=== PATIENT | male | born 1970 | race African-American/Black ===

== ENCOUNTER 2017-01-30 16:32 | Inpatient (IN) | payer MEDICAID ==
[~2017-01-30] VITALS: Ht 172.7 cm; Wt 80.0 kg
[~2017-01-30 16:32] MED LIST: DIVA500T4 PO; ENAL10TA PO; GABA300C10 PO; HYDR25TA11 PO; IBUP800T PO; NALT50TA PO; OMEP-110 PO; QUET200T4 PO; SUCR1TAB26 PO; TRAM-28 PO; VALP250C59 PO
[2017-01-30] MEDS ORDERED: LORazepam 1MG TABLET ONE (17:26)
[2017-01-30] MEDS ORDERED: LORazepam 1MG TABLET PO ONE (17:30)
[2017-01-30 19:59] LABS: BLOOD UREA NITROGEN 7 mg/dL (7-18)
[2017-01-30 20:09] LABS: ACETAMINOPHEN < 2 mcg/mL (10-30)
[2017-01-30] MEDS ORDERED: POTASSIUM CHLORIDE 40 MEQ in SODIUM CHLORIDE 0.9% 1,000 ML IV ONE (20:31)
[2017-01-30] MEDS ORDERED: LORazepam 2 MG/ML, 1ML ONE (20:57)
[2017-01-30] MEDS ORDERED: SODIUM CHLORIDE FLUSH 10ML SYR IVF PRN ×2 (21:00→21:30)
[2017-01-30] MEDS ORDERED: LORazepam 2 MG/ML, 1ML IVPush ONE (21:00)
[2017-01-30] MEDS ORDERED: POTASSIUM CHLORIDE 20 MEQ in SODIUM CHLORIDE 0.9% 1,000 ML IV ONE (21:26)
[2017-01-30] MEDS ORDERED: NS + 40MEQ KCL 0 ML IV ONE (21:44)
[2017-01-30] MEDS ORDERED: POTASSIUM CHLORIDE 10 MEQ, MVI ADULT 10 ML, FOLIC ACID 1 MG, MAGNESIUM SULFATE 1 GM in ... IV SCH (22:37)
[2017-01-30] MEDS ORDERED: LORazepam 2 MG/ML, 1ML IV PRN ×3 (23:00)
[2017-01-30] MEDS ORDERED: ALUMINUM/MAG/SIMETHICONE 30 ML UDC PO PRN (23:00)
[2017-01-30] MEDS ORDERED: DIAZEPAM 5 MG/ML, 2ML IV PRN (23:00)
[2017-01-30] MEDS ORDERED: ONDANSETRON 2MG/ML, 2ML IV PRN (23:00)
[2017-01-30 23:29] LABS: ASPARTATE AMINO TRANSFERASE 270 U/L (15-37)
[2017-01-30 23:36] LABS: BLOOD UREA NITROGEN 7 mg/dL (7-18)
[2017-01-31] MEDS: LORazepam 2 MG/ML, 1ML IV PRN ×4 (01:40→20:31)
[2017-01-31 02:00] VITALS: BP 118/83
[2017-01-31 02:35] VITALS: BP 118/83
[2017-01-31] MEDS: POTASSIUM CHLORIDE 10 MEQ, MVI ADULT 10 ML, FOLIC ACID 1 MG, MAGNESIUM SULFATE 1 GM in ... IV SCH ×3 (03:11→17:18)
[2017-01-31 07:26] VITALS: BP 115/80
[2017-01-31] MEDS: POTASSIUM CHLORIDE 40 MEQ in SODIUM CHLORIDE 0.9% 500 ML IV ONE (08:00)
[2017-01-31] MEDS: NALTREXONE HCL 50 MG HOMEMEDPO SCH (08:26)
[2017-01-31] MEDS: OMEPRAZOLE 20 MG CAPSULE.DR PO SCH ×2 (08:26→20:32)
[2017-01-31] MEDS: DIVALPROEX 500 MG TAB.ER.24H PO SCH ×2 (08:27→20:31)
[2017-01-31] MEDS: ENALAPRIL 10 MG TABLET PO SCH (08:27)
[2017-01-31] MEDS: GABAPENTIN 300 MG CAPSULE PO SCH ×2 (08:27→20:32)
[2017-01-31] MEDS: ENOXAPARIN 40 MG/0.4 ML SQ SCH (10:00)
[2017-01-31 13:04] VITALS: BP 119/81
[2017-01-31 18:19] VITALS: BP 158/92
[2017-01-31 20:29] LABS: DAU SCREEN DISCLAIMER
[2017-02-01 00:32] VITALS: BP 131/85
[2017-02-01] MEDS: POTASSIUM CHLORIDE 10 MEQ, MVI ADULT 10 ML, FOLIC ACID 1 MG, MAGNESIUM SULFATE 1 GM in ... IV SCH (04:10)
[2017-02-01 06:13] LABS: ASPARTATE AMINO TRANSFERASE 115 U/L (15-37); BLOOD UREA NITROGEN 7 mg/dL (7-18)
[2017-02-01 08:20] VITALS: BP 145/85
[2017-02-01] MEDS: NALTREXONE HCL 50 MG HOMEMEDPO SCH (08:54)
[2017-02-01] MEDS: DIVALPROEX 500 MG TAB.ER.24H PO SCH (08:58)
[2017-02-01] MEDS: ENALAPRIL 10 MG TABLET PO SCH (08:59)
[2017-02-01] MEDS: GABAPENTIN 300 MG CAPSULE PO SCH (08:59)
[2017-02-01] MEDS: OMEPRAZOLE 20 MG CAPSULE.DR PO SCH (08:59)
[2017-02-01] MEDS: ENOXAPARIN 40 MG/0.4 ML SQ SCH (10:00)
== END 2017-02-01 12:07 | disposition home or self-care (01) | DRG 897 ==
LOC: ED 21:12 → EDIP 21:26 → 4WST 01-31 00:27
PROVIDERS: ADMIT Hospitalist; ATTEND Hospitalist
DX: F10.220 Alcohol dependence with intoxication, uncomplicated (principal); E87.0 Hyperosmolality and hypernatremia; R45.851 Suicidal ideations; F31.9 Bipolar disorder, unspecified; K21.9 Gastro-esophageal reflux disease without esophagitis; I10 Essential (primary) hypertension; G40.909 Epilepsy, unspecified, not intractable, without status epilepticus; F20.9 Schizophrenia, unspecified; R13.10 Dysphagia, unspecified; G47.00 Insomnia, unspecified; F41.9 Anxiety disorder, unspecified; Z59.0 Homelessness; E87.6 Hypokalemia; I11.9 Hypertensive heart disease without heart failure; Z78.1 Physical restraint status; Z91.14 Patient's other noncompliance with medication regimen; G31.2 Degeneration of nervous system due to alcohol
CPT/HCPCS: 36415; 80048; 80053; 80307; 80329; 82040; 83735; 85025; 93005; 96374; J2405; J3475; J3480; J7042; G0480; J2060; J7030

== ENCOUNTER 2017-02-07 03:24 | Emergency (ER) | payer MEDICAID ==
[~2017-02-07] VITALS: Ht 170.2 cm; Wt 78.0 kg
[2017-02-07] MEDS ORDERED: LORazepam 2 MG/ML, 1ML ONE (03:45)
[2017-02-07] MEDS ORDERED: SODIUM CHLORIDE 0.9% 1,000ML IVBOLUS ONE (04:00)
[2017-02-07] MEDS ORDERED: LORazepam 2 MG/ML, 1ML IVPush ONE (04:00)
[2017-02-07 04:06] LABS: DAU SCREEN DISCLAIMER
[2017-02-07 04:18] LABS: ASPARTATE AMINO TRANSFERASE 113 U/L (15-37); BLOOD UREA NITROGEN 8 mg/dL (7-18)
[2017-02-07] MEDS ORDERED: CHLORDIAZEPOXIDE 25 MG CAPSULE PO ONE (04:30)
[2017-02-07 06:03] VITALS: BP 151/83
== END 2017-02-07 06:09 | disposition home or self-care (01) ==
LOC: ED 03:57
DX: F10.239 Alcohol dependence with withdrawal, unspecified (principal); F10.229 Alcohol dependence with intoxication, unspecified; I10 Essential (primary) hypertension; F31.9 Bipolar disorder, unspecified; E87.6 Hypokalemia; E86.1 Hypovolemia
CPT/HCPCS: 36415; 80053; 80307; 83690; 85025; 96361; 96374; 99285; J2060; J7030

== ENCOUNTER 2017-02-13 13:52 | Emergency (ER) | payer MEDICAID ==
[~2017-02-13] VITALS: Ht 165.1 cm; Wt 78.0 kg
[2017-02-13 13:57] VITALS: BP 134/93
[2017-02-13] MEDS ORDERED: LORazepam 1MG TABLET ONE ×2 (14:19→14:33)
[2017-02-13] MEDS ORDERED: LORazepam 1MG TABLET PO ONE (14:30)
[2017-02-13] MEDS ORDERED: OXYcodone/APAP 5/325MG TABLET ONE (15:21)
[2017-02-13] MEDS ORDERED: OXYcodone/APAP 5/325MG TABLET PO ONE (15:30)
== END 2017-02-13 15:55 | disposition home or self-care (01) ==
LOC: ED 15:45
DX: S06.0X1A Concussion with loss of consciousness of 30 minutes or less, initial encounter (principal); S62.524A Nondisplaced fracture of distal phalanx of right thumb, initial encounter for closed fracture; S00.81XA Abrasion of other part of head, initial encounter; K92.1 Melena; I10 Essential (primary) hypertension; K21.9 Gastro-esophageal reflux disease without esophagitis; W01.0XXA Fall on same level from slipping, tripping and stumbling without subsequent striking against object, initial encounter; Y93.89 Activity, other specified; Y92.89 Other specified places as the place of occurrence of the external cause; Y99.8 Other external cause status
CPT/HCPCS: 29125; 70450; 72125

== ENCOUNTER 2017-02-15 21:42 | Emergency (ER) | payer MEDICAID ==
[~2017-02-15] VITALS: Ht 170.2 cm; Wt 75.0 kg
[2017-02-15 21:46] VITALS: BP 132/91
== END 2017-02-16 00:57 | disposition home or self-care (01) ==
LOC: ED 21:43
DX: F10.120 Alcohol abuse with intoxication, uncomplicated (principal); I10 Essential (primary) hypertension; G40.909 Epilepsy, unspecified, not intractable, without status epilepticus; K21.9 Gastro-esophageal reflux disease without esophagitis
CPT/HCPCS: 99283

== ENCOUNTER 2017-03-11 10:04 | Emergency (ER) | payer MEDICAID ==
[~2017-03-11] VITALS: Ht 170.2 cm; Wt 84.0 kg
[2017-03-11 10:12] VITALS: BP 91/56
== END 2017-03-11 12:00 | disposition home or self-care (01) ==
LOC: ED 11:32
DX: S62.524A Nondisplaced fracture of distal phalanx of right thumb, initial encounter for closed fracture (principal); K21.9 Gastro-esophageal reflux disease without esophagitis; I10 Essential (primary) hypertension; M54.16 Radiculopathy, lumbar region; X58.XXXA Exposure to other specified factors, initial encounter; Y93.89 Activity, other specified; Y92.89 Other specified places as the place of occurrence of the external cause; Y99.9 Unspecified external cause status; Z72.89 Other problems related to lifestyle
CPT/HCPCS: 29130; 99283

== ENCOUNTER 2017-03-12 18:30 | Emergency (ER) | payer MEDICAID ==
[~2017-03-12] VITALS: Ht 170.2 cm; Wt 85.1 kg
[2017-03-12 18:31] VITALS: BP 121/79
== END 2017-03-12 18:59 | disposition home or self-care (01) ==
LOC: ED 18:35
DX: Z76.0 Encounter for issue of repeat prescription (principal); K21.9 Gastro-esophageal reflux disease without esophagitis; I10 Essential (primary) hypertension; F17.210 Nicotine dependence, cigarettes, uncomplicated
CPT/HCPCS: 99283

== ENCOUNTER 2017-05-24 19:48 | Emergency (ER) | payer MEDICAID ==
[~2017-05-24] VITALS: Ht 170.2 cm; Wt 80.0 kg
[~2017-05-24 19:48] MED LIST changes: +IBUP-1223 PO; -IBUP800T PO; -SUCR1TAB26 PO; +SUCR1TAB33 PO; -TRAM-28 PO; +TRAM-47 PO
[2017-05-24] MEDS ORDERED: LORazepam 2 MG/ML, 1ML IVPush STA (20:56)
[2017-05-24] MEDS ORDERED: ONDANSETRON 2MG/ML, 2ML IVPush ONE (21:00)
[2017-05-24] MEDS ORDERED: SODIUM CHLORIDE 0.9% 1,000ML IVBOLUS ONE (21:00)
[2017-05-24 21:52] LABS: PH, VENOUS 7.615 pH (7.320-7.420)
[2017-05-24 22:04] LABS: BLOOD UREA NITROGEN 7 mg/dL (7-18)
[2017-05-24] MEDS ORDERED: D5%-0.45% NACL 1,000 ML IV ONE (22:05)
[2017-05-24] MEDS ORDERED: THIAMINE 100 MG in SODIUM CHLORIDE 0.9% 50 ML IV ONE (22:05)
[2017-05-24 22:09] LABS: ASPARTATE AMINO TRANSFERASE 412 U/L (15-37)
[2017-05-24 22:20] LABS: HEMATOCRIT 43.8 % (39.2-51.8); HEMOGLOBIN 14.8 g/dL (13.7-18.0); WHITE BLOOD COUNT 5.5 x10^3/uL (3.4-10)
[2017-05-25] MEDS ORDERED: ONDANSETRON ODT 4 MG ONE (03:51)
[2017-05-25 03:58] VITALS: BP 116/77
[2017-05-25] MEDS ORDERED: ONDANSETRON ODT 4 MG PO ONE (04:00)
== END 2017-05-25 04:03 | disposition home or self-care (01) ==
LOC: ED 23:59
DX: K70.10 Alcoholic hepatitis without ascites (principal); E87.6 Hypokalemia; R94.5 Abnormal results of liver function studies; R74.9 Abnormal serum enzyme level, unspecified; F10.229 Alcohol dependence with intoxication, unspecified
CPT/HCPCS: 36415; 70450; 71010; 76700; 80053; 80307; 81001; 82010; 82803; 83690; 85025; 87086; 93005; 96361; 96365; 99285; J3411; J7030; Q0162; G0479

== ENCOUNTER 2017-06-15 22:31 | Inpatient (IN) | payer MEDICAID ==
[~2017-06-15] VITALS: Ht 170.2 cm; Wt 80.0 kg
[2017-06-15 23:30] LABS: HEMATOCRIT 41.2 % (39.2-51.8); HEMOGLOBIN 14.1 g/dL (13.7-18.0); WHITE BLOOD COUNT 7.9 x10^3/uL (3.4-10)
[2017-06-15] MEDS ORDERED: THIAMINE 100 MG in SODIUM CHLORIDE 0.9% 50 ML IVPB ONE (23:30)
[2017-06-15] MEDS ORDERED: SODIUM CHLORIDE 0.9% 1,000ML IVBOLUS ONE (23:30)
[2017-06-15] MEDS ORDERED: SODIUM CHLORIDE FLUSH 10ML SYR IVF ONE (23:30)
[2017-06-15 23:42] LABS: ASPARTATE AMINO TRANSFERASE 123 U/L (15-37); BLOOD UREA NITROGEN 10 mg/dL (7-18)
[2017-06-15] MEDS ORDERED: LORazepam 2 MG/ML, 1ML ONE (23:42)
[2017-06-15] MEDS: LORazepam 2 MG/ML, 1ML IVPush PRN (23:46)
[2017-06-16] MEDS ORDERED: OXYcodone IR 5MG TABLET PO PRN (01:00)
[2017-06-16] MEDS ORDERED: LORazepam 2 MG/ML, 1ML IV PRN ×3 (01:00)
[2017-06-16] MEDS ORDERED: POLYETHYLENE GLYCOL 17 GM PACKET PO PRN (01:00)
[2017-06-16] MEDS ORDERED: morphine SULFATE 10 MG/ML, 1ML IVPush PRN (01:00)
[2017-06-16] MEDS ORDERED: ONDANSETRON 2MG/ML, 2ML IVPush PRN (01:00)
[2017-06-16] MEDS ORDERED: LORazepam 0.5MG TABLET PO PRN (01:00)
[2017-06-16] MEDS ORDERED: DOCUSATE 100 MG CAPSULE PO PRN (01:00)
[2017-06-16] MEDS ORDERED: LORazepam 1MG TABLET PO PRN ×2 (01:00)
[2017-06-16] MEDS ORDERED: ENOXAPARIN 40 MG/0.4 ML SQ SCH (01:00)
[2017-06-16] MEDS: SULFACETAMIDE OPHTH 10%, 5ML EACHEYE SCH ×6 (02:08→16:00)
[2017-06-16] MEDS ORDERED: ENOXAPARIN 40 MG/0.4 ML ONE (02:43)
[2017-06-16] MEDS ORDERED: NS + 20MEQ KCL 1,000 ML IV ONE (02:43)
[2017-06-16] MEDS ORDERED: LORazepam 2 MG/ML, 1ML ONE ×2 (02:44→08:32)
[2017-06-16] MEDS: LORazepam 2 MG/ML, 1ML IVPush PRN ×2 (02:52→08:34)
[2017-06-16] MEDS: NS + 20MEQ KCL 1,000 ML IV SCH ×2 (02:52→12:01)
[2017-06-16] MEDS: SENNA/DOCUSATE TABLET PO SCH ×2 (09:00→10:59)
[2017-06-16] MEDS ORDERED: VALPROIC ACID 250 MG CAPSULE PO SCH (09:00)
[2017-06-16] MEDS ORDERED: ENALAPRIL 10 MG TABLET PO SCH (09:00)
[2017-06-16] MEDS ORDERED: GABAPENTIN 300 MG CAPSULE PO SCH (09:00)
[2017-06-16] MEDS: DIVALPROEX 500 MG TABLET.DR PO SCH ×2 (09:00→10:58)
[2017-06-16 09:41] VITALS: BP 158/97
[2017-06-16 09:52] VITALS: BP 158/97
[2017-06-16] MEDS ORDERED: THIAMINE 100MG TABLET PO SCH (11:30)
[2017-06-16] MEDS ORDERED: LAMOTRIGINE 25 MG TABLET PO SCH (11:30)
[2017-06-16] MEDS ORDERED: FOLIC ACID 1 MG TABLET PO SCH (11:30)
[2017-06-16 12:47] LABS: ASPARTATE AMINO TRANSFERASE 181 U/L (15-37); BLOOD UREA NITROGEN 7 mg/dL (7-18)
[2017-06-16 13:04] VITALS: BP 149/97
[2017-06-16 19:55] VITALS: BP 113/69
== END 2017-06-17 05:26 | disposition home or self-care (01) | DRG 897 ==
LOC: ED 06-16 00:09 → EDIP 06-16 00:10 → ED 06-16 00:12 → SUATTDRO 06-16 00:26 → 4WST 06-16 09:16
PROVIDERS: ADMIT Family Medicine; ATTEND Family Medicine
PROC: HZ2ZZZZ Detoxification Services for Substance Abuse Treatment (ICD-10-PCS; principal; 2017-06-16)
DX: F10.288 Alcohol dependence with other alcohol-induced disorder (principal); F10.239 Alcohol dependence with withdrawal, unspecified; K70.10 Alcoholic hepatitis without ascites; E87.6 Hypokalemia; F31.9 Bipolar disorder, unspecified; H10.9 Unspecified conjunctivitis; I10 Essential (primary) hypertension; K21.9 Gastro-esophageal reflux disease without esophagitis; Z87.11 Personal history of peptic ulcer disease
CPT/HCPCS: 36415; 80053; 80164; 80307; 83605; 85025; 96365; 96366; 96372; 96375; 96376; J1650; J3411; J3480; G0479; J2060; J7030

== ENCOUNTER 2017-08-13 09:32 | Inpatient (IN) | payer MEDICAID ==
[~2017-08-13] VITALS: Ht 170.2 cm; Wt 80.0 kg
[2017-08-13] MEDS ORDERED: SODIUM CHLORIDE 0.9% 1,000 ML IV ONE ×2 (09:50→13:05)
[2017-08-13] MEDS ORDERED: ONDANSETRON 2MG/ML, 2ML ONE (09:57)
[2017-08-13] MEDS ORDERED: FAMOTIDINE 20 MG/2 ML ONE (09:58)
[2017-08-13] MEDS ORDERED: morphine SULFATE 10 MG/ML, 1ML ONE (09:59)
[2017-08-13] MEDS ORDERED: FAMOTIDINE 20 MG/2 ML IVP ONE (10:00)
[2017-08-13] MEDS ORDERED: ONDANSETRON 2MG/ML, 2ML IVPush ONE (10:00)
[2017-08-13] MEDS ORDERED: SODIUM CHLORIDE FLUSH 10ML SYR IVF ONE (10:00)
[2017-08-13] MEDS ORDERED: SODIUM CHLORIDE 0.9% 1,000ML IVBOLUS ONE (10:00)
[2017-08-13] MEDS ORDERED: MORPHINE SULFATE 4 MG/ML, 1ML IVPush PRN (10:00)
[2017-08-13 10:15] LABS: HEMATOCRIT 38.4 % (39.2-51.8); WHITE BLOOD COUNT 5.8 x10^3/uL (3.4-10)
[2017-08-13 10:21] LABS: ASPARTATE AMINO TRANSFERASE 117 U/L (15-37); BLOOD UREA NITROGEN 3 mg/dL (7-18)
[2017-08-13] MEDS ORDERED: FOLI0.4T2 PO (10:23)
[2017-08-13] MEDS ORDERED: OMEP-110 PO (10:23)
[2017-08-13] MEDS ORDERED: LORazepam 2 MG/ML, 1ML IVPush ONE (11:00)
[2017-08-13] MEDS ORDERED: LORazepam 2 MG/ML, 1ML ONE (11:10)
[2017-08-13] MEDS ORDERED: OMNIPAQUE 350 MG/ML, 100ML BOTTLE ONE (12:11)
[2017-08-13] MEDS ORDERED: SODIUM CHLORIDE FLUSH 10ML SYR IVF PRN (13:30)
[2017-08-13] MEDS ORDERED: LORazepam 2 MG/ML, 1ML IVPush PRN (14:30)
[2017-08-13] MEDS ORDERED: LORazepam 1MG TABLET PO PRN ×4 (14:30)
[2017-08-13] MEDS ORDERED: ONDANSETRON 2MG/ML, 2ML IVPush PRN (14:30)
[2017-08-13] MEDS ORDERED: LORazepam 2 MG/ML, 1ML IV PRN ×5 (14:30)
[2017-08-13] MEDS ORDERED: LORazepam 0.5MG TABLET PO PRN (14:30)
[2017-08-13] MEDS ORDERED: ONDANSETRON ODT 4 MG PO PRN (14:30)
[2017-08-13 14:39] VITALS: BP 151/89
[2017-08-13] MEDS: ENOXAPARIN 40 MG/0.4 ML SQ SCH (15:22)
[2017-08-13] MEDS: POTASSIUM CHLORIDE 20 MEQ, MAGNESIUM SULFATE 1 GM, MVI ADULT 10 ML, THIAMINE 100 MG, FO... IV SCH (15:22)
[2017-08-13 19:11] VITALS: BP 143/98
[2017-08-13] MEDS: DIVALPROEX 500 MG TAB.ER.24H PO SCH (20:26)
[2017-08-13] MEDS: FAMOTIDINE 20 MG/2 ML IVPush SCH (20:26)
[2017-08-13] MEDS: GABAPENTIN 300 MG CAPSULE PO SCH (20:26)
[2017-08-14] MEDS: SODIUM CHLORIDE 0.9% 1,000 ML IV SCH ×3 (00:35→16:22)
[2017-08-14 01:00] VITALS: BP 144/89
[2017-08-14 06:06] LABS: HEMATOCRIT 39.2 % (39.2-51.8); HEMOGLOBIN 13.1 g/dL (13.7-18.0); WHITE BLOOD COUNT 6.3 x10^3/uL (3.4-10)
[2017-08-14 06:13] LABS: BLOOD UREA NITROGEN 4 mg/dL (7-18)
[2017-08-14 06:17] LABS: ASPARTATE AMINO TRANSFERASE 71 U/L (15-37)
[2017-08-14 07:50] VITALS: BP 136/91
[2017-08-14] MEDS: OMEPRAZOLE 20 MG CAPSULE.DR PO SCH (08:29)
[2017-08-14] MEDS: GABAPENTIN 300 MG CAPSULE PO SCH ×2 (08:29→20:59)
[2017-08-14] MEDS: FAMOTIDINE 20 MG/2 ML IVPush SCH ×2 (08:29→21:00)
[2017-08-14] MEDS ORDERED: LORazepam 2 MG/ML, 1ML IVPush PRN ×2 (09:00)
[2017-08-14] MEDS ORDERED: MAGNESIUM SULFATE PMX 4GM/100M 100 ML IV ONE (09:00)
[2017-08-14] MEDS ORDERED: HALOPERIDOL 5 MG/ML IM PRN (09:00)
[2017-08-14] MEDS ORDERED: POTASSIUM PHOSPHATE 22 MEQ in SODIUM CHLORIDE 0.9% 500 ML IV ONE (09:00)
[2017-08-14] MEDS: ENALAPRIL 10 MG TABLET PO SCH (10:49)
[2017-08-14] MEDS: VALPROIC ACID 250 MG CAPSULE PO SCH (10:49)
[2017-08-14] MEDS: DIVALPROEX 500 MG TAB.ER.24H PO SCH ×2 (10:49→20:59)
[2017-08-14 14:02] VITALS: BP 136/97
[2017-08-14] MEDS: POTASSIUM CHLORIDE 20 MEQ, MAGNESIUM SULFATE 1 GM, MVI ADULT 10 ML, THIAMINE 100 MG, FO... IV SCH (16:21)
[2017-08-14] MEDS: ENOXAPARIN 40 MG/0.4 ML SQ SCH (16:21)
[2017-08-14] MEDS ORDERED: LORazepam 2 MG/ML, 1ML IVPush ONE (17:00)
[2017-08-14 19:15] VITALS: BP 112/77
[2017-08-14] MEDS: LORazepam 2 MG/ML, 1ML IVPush PRN (20:59)
[2017-08-15 01:31] VITALS: BP 122/76
[2017-08-15] MEDS: SODIUM CHLORIDE 0.9% 1,000 ML IV SCH (02:41)
[2017-08-15 05:18] LABS: HEMATOCRIT 37.8 % (39.2-51.8); HEMOGLOBIN 12.5 g/dL (13.7-18.0); WHITE BLOOD COUNT 6.5 x10^3/uL (3.4-10)
[2017-08-15 05:37] LABS: ASPARTATE AMINO TRANSFERASE 68 U/L (15-37); BLOOD UREA NITROGEN 4 mg/dL (7-18)
[2017-08-15 08:10] VITALS: BP 128/91
[2017-08-15] MEDS: ENALAPRIL 10 MG TABLET PO SCH (09:43)
[2017-08-15] MEDS: DIVALPROEX 500 MG TAB.ER.24H PO SCH ×2 (09:43→22:16)
[2017-08-15] MEDS: FAMOTIDINE 20 MG/2 ML IVPush SCH ×2 (09:43→22:16)
[2017-08-15] MEDS: OMEPRAZOLE 20 MG CAPSULE.DR PO SCH (09:43)
[2017-08-15] MEDS: GABAPENTIN 300 MG CAPSULE PO SCH ×2 (09:43→22:16)
[2017-08-15] MEDS: VALPROIC ACID 250 MG CAPSULE PO SCH (09:43)
[2017-08-15] MEDS: ENOXAPARIN 40 MG/0.4 ML SQ SCH (14:36)
[2017-08-15] MEDS: POTASSIUM CHLORIDE 20 MEQ, MAGNESIUM SULFATE 1 GM, MVI ADULT 10 ML, THIAMINE 100 MG, FO... IV SCH (14:36)
[2017-08-15 15:18] VITALS: BP 122/79
[2017-08-15 18:50] VITALS: BP 125/80
[2017-08-16] MEDS: SODIUM CHLORIDE 0.9% 1,000 ML IV SCH ×3 (01:03→21:44)
[2017-08-16 02:09] VITALS: BP 121/86
[2017-08-16 07:07] VITALS: BP 115/88
[2017-08-16] MEDS: ENALAPRIL 10 MG TABLET PO SCH (08:54)
[2017-08-16] MEDS: FAMOTIDINE 20 MG/2 ML IVPush SCH ×2 (08:54→21:42)
[2017-08-16] MEDS: DIVALPROEX 500 MG TAB.ER.24H PO SCH ×2 (08:54→21:42)
[2017-08-16] MEDS: GABAPENTIN 300 MG CAPSULE PO SCH ×2 (08:54→21:42)
[2017-08-16] MEDS: OMEPRAZOLE 20 MG CAPSULE.DR PO SCH (08:54)
[2017-08-16] MEDS: VALPROIC ACID 250 MG CAPSULE PO SCH (08:54)
[2017-08-16 12:03] VITALS: BP 123/77
[2017-08-16] MEDS: ENOXAPARIN 40 MG/0.4 ML SQ SCH (14:20)
[2017-08-16 20:30] VITALS: BP 121/81
[2017-08-16] MEDS: LORazepam 2 MG/ML, 1ML IVPush PRN (22:36)
[2017-08-17] MEDS: VALPROIC ACID 250 MG CAPSULE PO SCH (07:55)
[2017-08-17] MEDS: SODIUM CHLORIDE 0.9% 1,000 ML IV SCH (07:55)
[2017-08-17] MEDS: OMEPRAZOLE 20 MG CAPSULE.DR PO SCH (07:55)
[2017-08-17] MEDS: DIVALPROEX 500 MG TAB.ER.24H PO SCH (07:55)
[2017-08-17] MEDS: ENALAPRIL 10 MG TABLET PO SCH (07:55)
[2017-08-17] MEDS: FAMOTIDINE 20 MG/2 ML IVPush SCH (07:55)
[2017-08-17] MEDS: GABAPENTIN 300 MG CAPSULE PO SCH (07:55)
[2017-08-17 12:02] VITALS: BP 113/78
[2017-08-17] MEDS ORDERED: THIA100T10 PO (12:05)
== END 2017-08-17 14:00 | disposition home or self-care (01) | DRG 391 ==
LOC: ED 12:44 → EDIP 13:05 → 4NOR 14:32 → 4EST 08-14 06:36
PROVIDERS: ADMIT Internal Medicine; ATTEND Internal Medicine
DX: K29.20 Alcoholic gastritis without bleeding (principal); E43 Unspecified severe protein-calorie malnutrition; D68.9 Coagulation defect, unspecified; E83.42 Hypomagnesemia; E86.0 Dehydration; K70.9 Alcoholic liver disease, unspecified; F10.239 Alcohol dependence with withdrawal, unspecified; D64.9 Anemia, unspecified; Z68.27 Body mass index [BMI] 27.0-27.9, adult; E78.5 Hyperlipidemia, unspecified; E87.6 Hypokalemia; F31.9 Bipolar disorder, unspecified; G40.909 Epilepsy, unspecified, not intractable, without status epilepticus; I10 Essential (primary) hypertension; K21.9 Gastro-esophageal reflux disease without esophagitis; K44.9 Diaphragmatic hernia without obstruction or gangrene; K76.0 Fatty (change of) liver, not elsewhere classified; Z59.0 Homelessness; Z87.11 Personal history of peptic ulcer disease; Z91.14 Patient's other noncompliance with medication regimen
CPT/HCPCS: 36415; 71010; 74177; 80053; 80307; 81003; 82010; 82140; 83690; 83735; 83880; 84100; 85025; 85610; 85730; 93005; 96361; 96374; 96375; J1650; J2405; J3411; J3475; J3480; Q9967; G0479; J2060; J7030; J7040; S0028

== ENCOUNTER 2017-08-18 05:55 | Emergency (ER) | payer MEDICAID ==
[~2017-08-18] VITALS: Ht 182.9 cm; Wt 105.0 kg
[~2017-08-18 05:55] MED LIST changes: +FOLI0.4T2 PO; +THIA100T10 PO
[2017-08-18 05:59] VITALS: BP 130/90
== END 2017-08-18 06:42 | disposition home or self-care (01) ==
LOC: ED 06:30
DX: F10.229 Alcohol dependence with intoxication, unspecified (principal)
CPT/HCPCS: 99283

== ENCOUNTER 2017-08-19 12:57 | Emergency (ER) | payer MEDICAID ==
[~2017-08-19] VITALS: Ht 170.2 cm; Wt 75.0 kg
[2017-08-19 13:02] VITALS: BP 126/93
[2017-08-19 13:40] LABS: HEMATOCRIT 42.6 % (39.2-51.8); HEMOGLOBIN 14.6 g/dL (13.7-18.0); WHITE BLOOD COUNT 7.1 x10^3/uL (3.4-10)
[2017-08-19 13:46] LABS: ASPARTATE AMINO TRANSFERASE 330 U/L (15-37); BLOOD UREA NITROGEN 7 mg/dL (7-18)
[2017-08-19] MEDS ORDERED: MAGNESIUM SULFATE 1 GM, THIAMINE 100 MG, FOLIC ACID 1 MG, MVI ADULT 10 ML in SODIUM CHL... IV ONE (14:00)
== END 2017-08-19 14:29 | disposition home or self-care (01) ==
LOC: ED 14:01
DX: K70.10 Alcoholic hepatitis without ascites (principal); F10.220 Alcohol dependence with intoxication, uncomplicated; I10 Essential (primary) hypertension; K21.9 Gastro-esophageal reflux disease without esophagitis
CPT/HCPCS: 36415; 80053; 80307; 82140; 83690; 85025; 99284; G0479

== ENCOUNTER 2017-08-24 10:55 | Emergency (ER) | payer MEDICAID ==
[~2017-08-24] VITALS: Ht 165.1 cm; Wt 68.0 kg
[2017-08-24 11:08] VITALS: BP 126/81
[2017-08-24 12:26] LABS: HEMATOCRIT 40.2 % (39.2-51.8); HEMOGLOBIN 13.6 g/dL (13.7-18.0); WHITE BLOOD COUNT 7.1 x10^3/uL (3.4-10)
[2017-08-24 12:44] LABS: ASPARTATE AMINO TRANSFERASE 133 U/L (15-37); BLOOD UREA NITROGEN 9 mg/dL (7-18)
== END 2017-08-24 14:09 | disposition home or self-care (01) ==
LOC: ED 14:03
DX: F10.10 Alcohol abuse, uncomplicated (principal); H26.9 Unspecified cataract; F31.9 Bipolar disorder, unspecified; F41.9 Anxiety disorder, unspecified; I10 Essential (primary) hypertension
CPT/HCPCS: 36415; 70450; 80053; 82140; 85025; 85610; 99285

== ENCOUNTER 2017-08-25 17:52 | Emergency (ER) | payer MEDICAID ==
[2017-08-25] MEDS ORDERED: LIDOCAINE 1%, 10ML ONE ×2 (20:52→21:28)
[2017-08-25] MEDS ORDERED: LIDOCAINE 1%, 10ML INFIL ONE (21:00)
[2017-08-26] MEDS ORDERED: BACITRACIN ZINC OINT 500U/GM, 0.9 GM ONE (00:28)
[2017-08-26 00:35] VITALS: BP 106/69
== END 2017-08-26 01:01 | disposition home or self-care (01) ==
LOC: ED 21:43
DX: S01.111A Laceration without foreign body of right eyelid and periocular area, initial encounter (principal); F10.220 Alcohol dependence with intoxication, uncomplicated; F31.9 Bipolar disorder, unspecified; I10 Essential (primary) hypertension; W06.XXXA Fall from bed, initial encounter; Y93.89 Activity, other specified; Y92.89 Other specified places as the place of occurrence of the external cause; Y99.8 Other external cause status
CPT/HCPCS: 12052; 70450

== ENCOUNTER 2017-09-13 16:40 | Emergency (ER) | payer MEDICAID ==
[~2017-09-13] VITALS: Ht 170.2 cm; Wt 72.0 kg
[2017-09-13 17:14] LABS: BASOPHILS # (AUTO) 0.13 x10^3/uL (0-0.1); BASOPHILS % (AUTO) 2 % (0-1); EOSINOPHILS # (AUTO) 0.05 x10^3/uL (0-0.4); EOSINOPHILS % (AUTO) 1 % (1-7); LYMPHOCYTES # (AUTO) 3.14 x10^3/uL (1-3.4); LYMPHOCYTES % (AUTO) 37 % (22-44); MD NO; MEAN CORPUSCULAR HGB CONC 33.8 g/dL (33.2-36.2); MEAN CORPUSCULAR VOLUME 91.7 fL (81-97); MEAN PLATELET VOLUME 6.5 fL (7.4-10.4); MONOCYTES # (AUTO) 0.75 x10^3/uL (0.2-0.8); MONOCYTES % (AUTO) 9 % (2-9); NEUTROPHILS # (AUTO) 4.38 x10^3/uL (1.8-6.8); NEUTROPHILS % (AUTO) 52 % (42-75); PLATELET COUNT 550 x10^3/uL (130-400); RED BLOOD COUNT 4.11 x10^6/uL (4.38-5.82); RED CELL DISTRIBUTION WIDTH 18.1 % (9.4-14.8)
[2017-09-13 17:18] VITALS: BP 127/83
[2017-09-13 17:26] LABS: ALBUMIN 3.2 g/dL (3.4-5.0); ANION GAP 11 mmol/L (5-15); CHLORIDE 107 mmol/L (98-107)
[2017-09-13 17:30] LABS: ALANINE AMINOTRANSFERASE 72 U/L (12-78); ALKALINE PHOSPHATASE 123 U/L (45-117); BILIRUBIN,TOTAL 0.9 mg/dL (0.2-1.0); CREATININE 0.72 mg/dL (0.7-1.3); TOTAL PROTEIN 8.2 g/dL (6.4-8.2)
[2017-09-13] MEDS ORDERED: POTASSIUM CHLORIDE 20 MEQ TAB.ER.PRT PO ONE (18:00)
[2017-09-13] MEDS ORDERED: POTASSIUM CHLORIDE 20 MEQ TAB.ER.PRT ONE (18:03)
== END 2017-09-13 18:18 | disposition home or self-care (01) ==
LOC: ED 17:42
DX: S00.83XA Contusion of other part of head, initial encounter (principal); S80.212A Abrasion, left knee, initial encounter; S80.211A Abrasion, right knee, initial encounter; F10.120 Alcohol abuse with intoxication, uncomplicated; I10 Essential (primary) hypertension; F31.9 Bipolar disorder, unspecified; K21.9 Gastro-esophageal reflux disease without esophagitis; W01.0XXA Fall on same level from slipping, tripping and stumbling without subsequent striking against object, initial encounter; Y93.89 Activity, other specified; Y92.488 Other paved roadways as the place of occurrence of the external cause; Y99.8 Other external cause status
CPT/HCPCS: 36415; 70450; 80053; 85025; 99285

== ENCOUNTER 2017-09-14 15:03 | Emergency (ER) | payer MEDICAID ==
[~2017-09-14] VITALS: Ht 172.7 cm; Wt 75.0 kg
[2017-09-14 15:13] VITALS: BP 124/63
== END 2017-09-14 18:28 | disposition left against medical advice (07) ==
LOC: ED 16:45
DX: S00.211A Abrasion of right eyelid and periocular area, initial encounter (principal); F10.220 Alcohol dependence with intoxication, uncomplicated; I10 Essential (primary) hypertension; W18.39XA Other fall on same level, initial encounter; Y93.89 Activity, other specified; Y92.59 Other trade areas as the place of occurrence of the external cause; Y99.8 Other external cause status
CPT/HCPCS: 99283

== ENCOUNTER 2017-09-27 18:06 | Emergency (ER) | payer MEDICAID ==
[~2017-09-27] VITALS: Ht 182.9 cm; Wt 84.0 kg
[2017-09-27] MEDS ORDERED: THIAMINE 100 MG/ML, 2ML IM ONE (19:00)
[2017-09-27 23:54] VITALS: BP 111/77
== END 2017-09-28 02:16 | disposition home or self-care (01) ==
LOC: ED 19:50
DX: F10.129 Alcohol abuse with intoxication, unspecified (principal); I10 Essential (primary) hypertension; K21.9 Gastro-esophageal reflux disease without esophagitis
CPT/HCPCS: 99283

== ENCOUNTER 2017-09-30 12:31 | Emergency (ER) | payer MEDICAID ==
[~2017-09-30] VITALS: Ht 188 cm; Wt 112.3 kg
[2017-09-30 12:41] VITALS: BP 116/80
== END 2017-09-30 18:10 | disposition home or self-care (01) ==
LOC: ED 12:44
DX: F10.220 Alcohol dependence with intoxication, uncomplicated (principal); I10 Essential (primary) hypertension; K21.9 Gastro-esophageal reflux disease without esophagitis
CPT/HCPCS: 99283

== ENCOUNTER 2017-10-02 13:26 | Emergency (ER) | payer MEDICAID ==
[~2017-10-02] VITALS: Ht 170.2 cm; Wt 68.2 kg
[2017-10-02] MEDS ORDERED: SODIUM CHLORIDE 0.9% 1,000ML IVBOLUS ONE (15:00)
[2017-10-02] MEDS ORDERED: SODIUM CHLORIDE FLUSH 10ML SYR IVF ONE (15:00)
[2017-10-02] MEDS ORDERED: LORazepam 1MG TABLET PO ONE (15:00)
[2017-10-02] MEDS ORDERED: LORazepam 2 MG/ML, 1ML ONE (16:03)
[2017-10-02 16:52] LABS: AMPHETAMINE SCREEN, URINE Negative (Negative); BARBITURATE SCREEN, URINE Negative (Negative); BENZODIAZEPINE SCREEN, URINE Positive (Negative); CANNABINOID SCREEN, URINE Negative (Negative); COCAINE SCREEN, URINE Negative (Negative); METHADONE SCREEN, URINE Negative (Negative); OPIATE SCREEN, URINE Negative (Negative)
[2017-10-02 16:54] LABS: BASOPHILS # (AUTO) 0.04 x10^3/uL (0-0.1); BASOPHILS % (AUTO) 1 % (0-1); EOSINOPHILS # (AUTO) 0.02 x10^3/uL (0-0.4); EOSINOPHILS % (AUTO) 0 % (1-7); LYMPHOCYTES # (AUTO) 2.25 x10^3/uL (1-3.4); LYMPHOCYTES % (AUTO) 27 % (22-44); MD NO; MEAN CORPUSCULAR HEMOGLOBIN 29.6 pg (27.5-34.5); MEAN CORPUSCULAR HGB CONC 32.9 g/dL (33.2-36.2); MEAN PLATELET VOLUME 7.1 fL (7.4-10.4); MONOCYTES # (AUTO) 0.26 x10^3/uL (0.2-0.8); MONOCYTES % (AUTO) 3 % (2-9); NEUTROPHILS # (AUTO) 5.77 x10^3/uL (1.8-6.8); NEUTROPHILS % (AUTO) 69 % (42-75); PLATELET COUNT 272 x10^3/uL (130-400); RED CELL DISTRIBUTION WIDTH 17.9 % (9.4-14.8)
[2017-10-02 17:04] LABS: ALANINE AMINOTRANSFERASE 84 U/L (12-78); ALBUMIN 3.5 g/dL (3.4-5.0); ANION GAP 11 mmol/L (5-15); CALCIUM 7.6 mg/dL (8.5-10.1); CHLORIDE 109 mmol/L (98-107)
[2017-10-02 17:06] LABS: ALKALINE PHOSPHATASE 139 U/L (45-117); BILIRUBIN,TOTAL 0.7 mg/dL (0.2-1.0); TOTAL PROTEIN 8.2 g/dL (6.4-8.2)
[2017-10-02 18:13] VITALS: BP 140/89
== END 2017-10-02 18:16 | disposition home or self-care (01) ==
LOC: ED 13:48
DX: M79.642 Pain in left hand (principal); M79.641 Pain in right hand; G89.29 Other chronic pain; M19.141 Post-traumatic osteoarthritis, right hand; F10.20 Alcohol dependence, uncomplicated; F19.10 Other psychoactive substance abuse, uncomplicated
CPT/HCPCS: 36415; 70450; 73130; 80053; 80307; 85025; 93005; 96360; 99285; J7030